=== PATIENT | female | born 1990 | race Hispanic/Latino ===

== ENCOUNTER → 2017-04-17 | Outpatient (CLI) | payer SELFPAY | END | disposition home or self-care (01) | LOC: RAD 12:40 | DX: Z3A.36 36 weeks gestation of pregnancy (principal) | CPT/HCPCS: 76811 ==

== ENCOUNTER 2017-04-26 12:33 | Outpatient (CLI) | payer OTHER ==
[~2017-04-26] VITALS: Ht 162.6 cm; Wt 84.5 kg
[2017-04-26 12:50] VITALS: BP 120/78
== END 2017-04-26 14:15 | disposition home or self-care (01) ==
LOC: LDRP-OP 12:33 → 2WEST 12:34
DX: O47.1 False labor at or after 37 completed weeks of gestation (principal); Z3A.38 38 weeks gestation of pregnancy
CPT/HCPCS: 59025; G0378

== ENCOUNTER 2017-04-26 17:46 | Inpatient (IN) | payer OTHER ==
[~2017-04-26] VITALS: Ht 162.6 cm; Wt 85.2 kg
[2017-04-26] VITALS (7 sets, daily range): BP systolic 106–131; BP diastolic 61–81
[2017-04-27 08:01] VITALS: BP 112/67
[2017-04-27 13:47] LABS: HEMATOCRIT 32.3 % (36.0-46.0); MCHC 32.5 G/DL (30.0-36.0); MEAN PLAT.VOLUME 11.5 uM^3 (9.5-12.4); PLATELET COUNT 310 K/uL (156-360); RBC DIS.WIDTH-CV 15.2 % (11.8-14.6); RBC DIS.WIDTH-SD 43.7 % (39-53); RED BLOOD COUNT 4.04 M/uL (3.80-5.20); WHITE BLOOD COUNT 15.2 K/uL (4.1-10.2)
[2017-04-27 15:08] VITALS: BP 119/75
[2017-04-28] MEDS ORDERED: PUMP IN STYLE1 EACH MC (09:34)
[2017-04-28] MEDS ORDERED: IBUPROFEN800 MG PO (09:41)
== END 2017-04-28 14:13 | disposition home or self-care (01) | DRG 775 ==
LOC: LDRP-OP 17:46 → 2WEST 17:47
PROVIDERS: Advanced Practice Midwife
PROC: 10E0XZZ Delivery of Products of Conception, External Approach (ICD-10-PCS; principal; 2017-04-26)
PROC: 10907ZC Drainage of Amniotic Fluid, Therapeutic from Products of Conception, Via Natural or Artificial Opening (ICD-10-PCS; 2017-04-26)
DX: O69.82X0 Labor and delivery complicated by other cord entanglement, without compression, not applicable or unspecified (principal)
CPT/HCPCS: 59025; 85025; 85027; G0378; J7120